=== PATIENT | female | born 1960 | race Caucasian/White ===

== ENCOUNTER 2017-01-07 12:31 | Emergency (ER) | payer SELFPAY ==
[2017-01-07 12:38] VITALS: BP 97/68
--- NOTE | 2017-01-07 12:41 | EDM.PDOC ---
ED HPI GENERAL MEDICAL PROBLEM - General Chief Complaint: Back Pain or Injury Stated Complaint: Back pain Time Seen by Provider: 01/07/17 12:31 Source of Information: Reports: Patient, Old records ([facility] chart/EMR) History Limitations: Reports: No Limitations - History of Present Illness INITIAL COMMENTS - FREE TEXT/NARRATIVE: Patient was brought to the emergency room via private automobile by her daughter for evaluation 04/08 sharp left lower pleuritic type symptoms with possible concomitant left upper lumbar pain with symptoms starting after she woke up this morning at 06:30 a.m. She did have a minor fall 3 days ago, however fell on her right side at that time with no known significant injury. The patient has had 5 day history of a greenish productive cough with 3 Tylenol tablets taken at about 07:30 hours for her pleuritic type symptoms. She has not measured her temperature with no known previous fever or known exposure to infection. Patient did not get her influenza booster this season. Patient has had a recent cardiac workup at [facility] in [place] as below. The patient denies any other chest pain/pressure, heart flutter, dizziness, orthostasis, orthopnea, diaphoresis, paresthesias, recent decreased exercise tolerance, or any other anginal-type symptoms. No recent history of abdominal pain, heartburn , nausea, diarrhea, melena, gross hematochezia, or any food intolerance, including fatty foods, etc.. She denies any recent gross hematuria, colic, or other UTI symptoms Onset: today, sudden Onset Date: 01/07/17 Onset Time: 06:30 Duration: Constant Location: Reports: chest, back. Denies: face, neck, pelvis, upper extremity, left, upper extremity, right, lower extremity, left, radiates to: Quality: Reports: Same as previous episode, Sharp Severity: moderate Improves with: Reports: Rest Worsens with: Reports: Breathing, Movement Associated Symptoms: Reports: cough, cough w sputum. 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 Back Pain Score (Numeric/FACES): 8 - Related Data Allergies Allergy/AdvReac Type Severity Reaction Status Date / Time amoxicillin Allergy Rash Verified 01/07/17 12:42 aspirin Allergy Bleeding Verified 01/07/17 12:42 codeine Allergy Anaphylactic Verified 01/07/17 12:42 Shock egg Allergy Rash Verified 01/07/17 12:42 Penicillins Allergy Swelling Verified 01/07/17 12:42 sertraline HCl [From Zoloft] Allergy Agitation Verified 01/07/17 12:42 Sulfa (Sulfonamide Allergy Rash Verified 01/07/17 12:42 Antibiotics) sulfamethoxazole Allergy Rash Verified 01/07/17 12:42 [From Bactrim] trimethoprim [From Bactrim] Allergy Rash Verified 01/07/17 12:42 Home Meds: Home Meds Ciprofloxacin HCl [Cipro] 500 mg PO BID #20 tablet 01/07/17 [Rx] Cyclobenzaprine [Flexeril] 10 mg PO TID PRN #60 tablet 01/07/17 [Rx] Pantoprazole Sodium 40 mg PO DAILY 01/07/17 [History] guaiFENesin/Dextromethorphan [Mucinex Dm ER 600-30 mg Tablet] 1 each PO BID #20 tab.er.12h 01/07/17 [Rx] Past Medical History HEENT History: Reports: Allergic rhinitis, Impaired vision. Denies: Cataract, Glaucoma, Hard of hearing, Macular degeneration, Retinal detachment Other HEENT History: glasses Cardiovascular History: Reports: Aneurysm (AAA as below), Arrhythmia, Blood clots/VTE/DVT, High cholesterol, Other (see below). Denies: Afib, CAD, Heart Failure, Heart murmur, Hypertension, ND, Pacemaker, PVD, Syncope Other Cardiovascular History: previous postoperative bilateral PEs after her hysterectomy at age 35 as below with no apparent subsequent anticoagulation therapy at discharge, Bradycardia, hypotension Respiratory History: Reports: COPD, Intubation, previous, PE, Pneumothorax, Other (see below). Denies: Asthma, Intubation, difficult, Pulmonary fibrosis Other Respiratory History: Right Sided pneumothorax secondary to AAA repair in 1984, postoperative PE as above Gastrointestinal History: Reports: Cholelithiasis, Chronic constipation, Gastritis, GERD, GI bleed, PUD, Other (see below). Denies: Bowel obstruction, Celiac disease, Colon polyp, Diverticulosis, Fecal incontinence, Helicobacter pylori, Hiatal hernia, Inflammatory bowel disease, Irritable bowel syndrome, Jaundice, Pancreatitis Other Gastrointestinal History: Benign hepatic cysts versus hemangiomas Genitourinary History: Reports: UTI, recurrent, Other (see below). Denies: Acute renal failure, Chronic renal insuffiency, Dialysis, Renal calculus, Retention, urinary, STD, Urinary incontinence Other Genitourinary History: Recurrent UTIs since childhood with surgeries as below ORTHOTIC/PROSTHETIC CLINICIAN History: Reports: Dysfunctional uterine bleeding, Fibroids, . Denies: Endometriosis, Spontaneous : 3 Para: 3 (C-sections x3 with full-term pregnancies otherwise no complications during the deliveries or pregnancies) LMP (Approximate): Menopausal (Surgical menopause as below) Musculoskeletal History: Reports: Arthritis, Back pain, chronic, Osteoarthritis. Denies: Amputation, Fracture, Gout, Osteoporosis, RA, SLE Neurological History: Reports: Concussion, Head trauma, Other (see below). Denies: Cerebral aneurysms, CVA, Headaches, chronic, Migraines, MS, Parkinson's , Seizure, TIA Other Neuro History: Nonspecific memory loss in early 2016, head concussion in 2013 Psychiatric History: Reports: Anxiety, Depression. Denies: Abuse, victim of, ADD, ADHD, Addiction, Psych Hospitalization(s), PTSD, Suicide attempt, Suicidal ideation Endocrine/Metabolic History: Reports: Other (see below). Denies: Diabetes, type I, Diabetes, type II, Hypothyroidism, IDDM, Osteoporosis Other Endocrine/Metabolic History: Severe recurrent Hypoglycemia Hematologic History: Reports: Anemia, B12 deficiency, Blood transfusion(s), Iron deficiency, Other (see below). Denies: Transfusion reaction Other Hematologic History: Note history of gastric bypass, blood transfusions with surgeries as above including AAA repair Immunologic History: Reports: None. Denies: AIDS, HIV, SLE Oncologic (Cancer) History: Denies: Basal cell carcinoma, Cervix, Hodgkin's Lymphoma, Leukemia, Lymphoma, Malignant melanoma, Non-Hodgkin's Lymphoma, Squamous cell carcinoma, Uterine Dermatologic History: Denies: Eczema, Psoriasis - Infectious Disease History Infectious Disease History: Reports: Chicken pox, Measles, Pertussis (whooping cough), Rubella, Other (see below) (Cat Scratch fever as a child). Denies: C- difficile, Helicobacter pylori, Meningitis, Mononucleosis, MRSA, Mumps, Rheumatic Fever, Scarlet fever, Shingles, TB, VRE - Past Surgical History Head Surgeries/Procedures: Reports: None HEENT Surgical History: Reports: Adenoidectomy, Oral surgery, Tonsillectomy, Other (see below). Denies: Cataract surgery, Eye surgery, Laser surgery, LASIK , Myringotomy w tube(s), Naso-sinus surgery Other HEENT Surgeries/Procedures: Multiple teeth extractions with complete upper dentures and partial lowers, tonsillectomy and adenoidectomy at about age 5 Cardiovascular Surgical History: Reports: AAA repair, Aneurysm, Vascular surgery , Other (see below) Other Cardiovascular Surgeries/Procedures: Abdominal aortic aneurysm repair at age 25 on 08/30/84, with subsequent other vascular repair of abdominal area concomitant with gastric bypass reversal as below Respiratory Surgical History: Reports: None. Denies: Lung Biopsies, Thoracentesis GI Surgical History: Reports: Appendectomy, Bariatric procedure, Cholecystectomy , Colonoscopy, EGD, Other (see below) Other GI Surgeries/Procedures: Gastric bypass surgery in 1980 with subsequent reversal in 1983 with concomitant repair of abdominal artery, open cholecystectomy with concomitant appendectomy in May of 1988, last EGD on 12/03/11 with incomplete last colonoscopy on the same day secondary to diffuse stool , vagotomy with gastric pyloroplasty Female Surgical History: Reports: section, Hysterectomy, Salpingo- oophorectomy, Tubal ligation, Other (see below). 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 Denies: Thyroid biopsy Other Endocrine Surgeries/Procedures: Glucometer implant in 2010 with subsequent removal Neurological Surgical History: Denies: C-Spine, Discectomy, Laminectomy, Lumbar spine, Spinal fusion, Vertebroplasty Musculoskeletal Surgical History: Denies: Carpal tunnel, Ganglion cyst, Hip replacement, Joint replacement, ORIF, Shoulder surgery Oncologic Surgical History: Reports: None. Denies: Biopsy of breast Dermatological Surgical History: Reports: None - Past Imaging History Past Imaging History: Reports: Cardiac echo (01/01/17 as below), CAT scan ( Abdomen and pelvis with oral and IV contrast on 02/19/15), MRI (Head in September 2016), Stress testing (Cardiolite stress test on 11/26/16 which was positive with subsequent PET scan of the chest and echocardiogram as above in [facility] on 01/01/17) Social & Family History - Family History Cardiac: Reports: CAD, Heart failure, ND, Other (see below) Other Cardiac Family History: Brother with initial ND at age 32 fatal CVA as below, mother with fatal ND and CHF in her 70s, paternal grandfather with fatal ND at age 47, brother with ND and unknown type of cardiac procedure in his 50s Neurological: Reports: CVA, Other (see below) Other Neurological Family History: Brother with multiple CVAs, previous heart disease as above, and fatal CVA at age 52, paternal grandmother and mother with CVA in her 70s Endocrine/Metabolic: Reports: Diabetes, type II, IDDM, Other (see below) Other Endocrine/Metabolic Family History: Mother with AODM, brother with IDDM with fatal CVA as above, another brother with IDDM Oncologic: Reports: Colon, Lung, Metastatic, Other (see below) Other Oncologic Family History: Father with fatal colon cancer with probable metastases to the brain at age 74 with additional apparent pulmonary lesions/ lung cancer and history of tobacco use, mother with fatal lung cancer at age 70 with history of tobacco use - Tobacco Use Smoking Status *Q: Never Smoker Smoking Cessation Information Provided To Patient: No Second Hand Smoke Exposure: No Second Hand Smoke Education Provided: No - Caffeine Use Caffeine Use: Reports: Coffee (2 cups per day), Tea (2 Cups per day). Denies: Energy drinks, Soda - Alcohol Use Alcohol Use History: No Days Per Week of Alcohol Use: 0 (No previous DWIs, problems with alcohol abuse, etc.) Number of Drinks Per Day: 1 (Usually wine for holidays) Total Drinks Per Week: 0 Alcohol Use Frequency: Socially - Recreational Drug Use Recreational Drug Use: No Drug Use in Last 12 Months: No Recreational Drug Type: Reports: Marijuana/Hashish (Experimentation for 8 months as a teenager). 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 Denies: Fever, Chills, Malaise, Fatigue, Night Sweats, Diaphoresis, Decreased Appetite, Weight Loss, Weight Gain HEENT: Reports: Glasses, Rhinitis, Sinus Problem. Denies: Contact Lenses, Dental Pain, Ear Discharge, Ear Pain, Eye Discharge, Hearing Loss, Throat Pain, Throat Swelling, Vertigo, Vision Change Respiratory: Reports: Pleuritic Chest Pain, Cough, Sputum. Denies: Shortness of Breath, Wheezing, Hemoptysis Cardiovascular: Denies: Chest Pain, Blood Pressure Problem, Claudication, Dyspnea on Exertion, Edema, Lightheadedness, Orthopnea, Palpitations, PND, Syncope Endocrine: Reports: No Symptoms. Denies: Fatigue, Low Glucose GI/Abdominal: Reports: No Symptoms. Denies: Abdominal Pain, Anorexia, Black Stool, Bloody Stool, Constipation, Diarrhea, Decreased Appetite, Difficulty Swallowing, Distension, Flatus, Hematemesis, Hematochezia, Melena, Nausea, Stool Incontinence, Vomiting : Reports: No Symptoms. Denies: Discharge, Dysuria, Flank Pain, Frequency, Hematuria, Incontinence, Pain, Urgency, Urinary Retention Musculoskeletal: Reports: Back Pain. Denies: Neck Pain, Shoulder Pain, Arm Pain , Hand Pain, Leg Pain Skin: Reports: No Symptoms. Denies: Jaundice, Pallor, Diaphoresis, Bruising, Pruritis, Wound Neurological: Reports: Difficulty Walking (Mild secondary to back pain and pleurisy). Denies: Confusion, Dizziness, Headache, Numbness, Paresthesia, Seizure, Syncope, Tingling, Weakness, Change in Speech, Gait Disturbance Psychiatric: Reports: No Symptoms. Denies: Agitation, Anxiety, Confusion, Depression, Hallucinations, Suicidal Ideation Hematologic/Lymphatic: Reports: No Symptoms Immunologic: Reports: No Symptoms ED EXAM, GENERAL - Physical Exam Exam: See Below Exam Limited By: No Limitations General Appearance: Alert, WD/WN, No Apparent Distress, Anxious (Moderate) Eye Exam: Bilateral Eye: EOMI, Normal Inspection (No nystagmus), PERRL Ears: Normal External Exam, Normal Canal, Hearing Grossly Normal, Normal TMs Nose: Normal Mucosa, Clear Rhinorrhea (Mild). No: No Blood Throat/Mouth: Normal Inspection, Normal Lips, Normal Gums, Normal Oropharynx, Normal Voice, No Airway Compromise. No: Normal Teeth (Complete upper dentures with partial lowers), Dysphagia, Perioral Cyanosis Head: Atraumatic, Normocephalic. No: Facial Swelling, Facial Tenderness, Sinus Tenderness Neck: Normal Inspection, Supple, Non-Tender, Full Range of Motion. No: Carotid Bruit, Lymphadenopathy (L), Lymphadenopathy (R), Thyromegaly Respiratory/Chest: Lungs Clear, Normal Breath Sounds, No Accessory Muscle Use, Chest Non-Tender (Nonspecific left lateral and posterior lower chest wall pain with no rubs, ecchymosis, deformity, etc.). No: Stridor, Pleural Rub, Accessory Muscle Use Cardiovascular: Normal Peripheral Pulses, Regular Rate, Rhythm, No Edema, No Gallop, No JVD, No Murmur, No Rub. No: Gallop/S3, Gallop/S4, Friction Rub Peripheral Pulses: 4+: Radial (L), Radial (R) GI/Abdominal: Normal Bowel Sounds, Soft, Non-Tender, No Organomegaly, No Distention, No Abnormal Bruit, No Mass. No: Pelvis Stable, Guarding (Female) Exam: Deferred Rectal (Female) Exam: Deferred Back Exam: Decreased Range of Motion (Secondary to upper lumbar/lower thoracic left-sided spasms and pain), Muscle Spasm (Lower left-sided thoracic), Paraspinal Tenderness (Mild to moderate localized tenderness in left back region as above) Extremities: Normal Inspection, Normal Range of Motion, Non-Tender, No Pedal Edema, Normal Capillary Refill. No: Pedal Edema, Brain's Sign Neurological: Alert, Oriented, CN II-XII Intact, Normal Cognition, Normal Gait, Normal Reflexes, No Motor/Sensory Deficits Psychiatric: Anxious (Moderate), Depressed Mood (Mild to moderate with adequate eye contact) Skin Exam: Warm, Dry, Intact, Normal Color, No Rash. No: Diaphoretic, Ecchymosis, Lymphangitis, Pallor, Wound/Incision Lymphatic: No Adenopathy Course - Vital Signs Last Recorded V/S: Last Vital Signs Temp 37.5 C 01/07/17 12:37 Pulse 75 01/07/17 12:37 Resp 18 01/07/17 12:37 BP 97/68 01/07/17 12:37 Pulse Ox 100 01/07/17 12:37 Vital Signs - 24 hr 01/07/17 12:37 Temperature [ 37.5 C Temporal] Pulse, 75 Peripheral [ Right Pulse Oximetry] Respiratory 18 Rate Blood Pressure 97/68 [Right Upper Arm] O2 Sat by Pulse 100 Oximetry - Orders/Labs/Meds Orders: Active Orders 24 hr Category Date Time Status Chest 2V [CR] Urgent Exams 01/07/17 12:42 Ordered Lumbar Spine 2 or 3V [CR] Stat Exams 01/07/17 12:42 Ordered CULTURE BLOOD [BC] Stat Lab 01/07/17 12:42 Ordered CULTURE BLOOD [BC] Stat Lab 01/07/17 12:50 Received CULTURE URINE [RM] Routine Lab 01/07/17 13:10 Received Blood Culture x2 Reflex Set [OM.PC] Urgent Oth 01/07/17 12:42 Ordered Obtain Past Medical Record [OM.PC] Routine Oth 01/07/17 12:42 Active Labs: Laboratory Tests 01/07/17 01/07/17 01/07/17 Range/Units 12:50 12:50 13:10 WBC 9.4 (4.0-10.2) K/uL RBC 4.10 (3.77-5.09) M/uL Hgb 12.8 (11.7-15.5) g/dL Hct 40.4 (34.0-46.0) % MCV 98.5 H (84.0-98.0) fL MCH 31.2 (28.2-33.3) pg MCHC 31.7 (31.7-36.0) g/dL RDW 12.5 (11.2-14.1) % Plt Count 259 (150-350) K/uL Neut % (Auto) 78.5 (45.0-80.0) % Lymph % (Auto) 14.5 (10.0-50.0) % Mellette % (Auto) 3.9 (2.0-14.0) % Eos % (Auto) 2.6 (0.0-5.0) % Baso % (Auto) 0.5 (0.0-2.0) % Neut # (Auto) 7.35 H (1.40-7.00) K/uL Lymph # (Auto) 1.36 (0.50-3.50) K/uL Mellette # (Auto) 0.37 (0.00-1.00) K/uL Eos # (Auto) 0.24 (0.00-0.50) K/uL Baso # (Auto) 0.05 (0.00-0.20) K/uL Sodium 140 (136-145) mmol/L Potassium 4.2 (3.5-5.1) mmol/L Chloride 105 (98-107) mmol/L Carbon Dioxide 30.6 (21.0-32.0) mmol/L BUN 14 (7-18) mg/dL Creatinine 0.89 (0.51-1.17) mg/dL Est Cr Clr Drug Dosing 72.05 mL/min Estimated GFR (MDRD) > 60 mL/min Glucose 111 H (74-106) mg/dL Calcium 9.4 (8.5-10.1) mg/dL Total Bilirubin 0.5 (0.2-1.0) mg/dL AST 16 (15-37) U/L ALT 19 (12-78) U/L Alkaline Phosphatase 115 (46-116) IU/L Total Protein 7.0 (6.4-8.2) g/dL Albumin 4.0 (3.4-5.0) g/dL Specimen Type Urincc Urine Color Yellow Urine Appearance Cloudy Urine pH 6.0 (5.0-9.0) Ur Specific Lindley 1.015 (1.005-1.030) Urine Protein Negative (NEGATIVE) mg/dL Urine Glucose (UA) Negative (NEGATIVE) mg/dL Urine Ketones Negative (NEGATIVE) mg/dL Urine Occult Blood Negative (NEGATIVE) Urine Nitrite Positive H (NEGATIVE) Urine Bilirubin Negative (NEGATIVE) Urine Urobilinogen 0.2 (0.2-1.0) E.U./dL Ur Leukocyte Esterase Negative (NEGATIVE) Urine RBC Not seen /HPF Urine WBC 0-5 /HPF Ur Epithelial Cells Rare /LPF Urine Bacteria Many H (NONE TO FEW) /HPF Meds: Medications Discontinued Medications Generic Name Dose Route Start Last Admin Trade Name Freq PRN Reason Stop Dose Admin Ceftriaxone Sodium 1 gm 01/07/17 13:42 01/07/17 13:51 Rocephin IM 01/07/17 13:43 1 gm ONETIME ONE Administration Ketorolac Tromethamine 60 mg 01/07/17 13:43 01/07/17 13:51 Toradol IM 01/07/17 13:44 60 mg ONETIME ONE Administration Lidocaine HCl 5 ml 01/07/17 13:42 01/07/17 13:50 Xylocaine-Mpf 1% INJECT 01/07/17 13:43 Not Given ONETIME ONE - Radiology Interpretation Free Text/Narrative:: Chest x-ray, PA and lateral, shows evidence of moderate osteoarthritic and osteoporotic changes in the thoracic spine including and probable old multiple minor vertebral body compression fractures with no evidence of acute fracture. Gastric dilatation and fluid levels significantly improved in comparison to use as below. No evidence of free air. Moderate COPD changes noted X-rays of the lumbar spine, 3 views, shows evidence of moderate osteoarthritic and osteoporotic changes as above including mild scoliosis. Multiple postsurgical changes noted including moderate gaseous distention in stool with occasional fluid levels, however no direct evidence of significant clinical obstruction based on chest x-ray as above Departure - Departure Time of Disposition: 14:35 Disposition: Home, Self-Care 01 Condition: good Clinical Impression: Bronchitis, Pleurisy, Peptic reflux disease, Mixed anxiety and depressive disorder UTI (urinary tract infection) Qualifiers: Urinary tract infection type: site unspecified Hematuria presence: without hematuria Qualified Code(s): N39.0 - Urinary tract infection, site not specified Osteoarthritis Qualifiers: Osteoarthritis location: multiple joints Osteoarthritis type: primary Qualified Code(s): M15.0 - Primary generalized (osteo)arthritis COPD (chronic obstructive pulmonary disease) Qualifiers: COPD type: COPD with acute lower respiratory infection Qualified Code(s): J44.0 - Chronic obstructive pulmonary disease with acute lower respiratory infection - Discharge Information Prescriptions: Ciprofloxacin HCl [Cipro] 500 mg PO BID #20 tablet Cyclobenzaprine [Flexeril] 10 mg PO TID PRN #60 tablet PRN Reason: Spasms guaiFENesin/Dextromethorphan [Mucinex Dm ER 600-30 mg Tablet] 1 each PO BID #20 tab.er.12h Instructions: Back Pain, Adult, [id number], Muscle Strain, [id number], Acute Bronchitis, [id number], Pleurisy, [id number], Urinary Tract Infection , Adult, [id number] Referrals: PCP,Unknown [Primary Care Provider] - Forms: ED Department Discharge Additional Instructions: 1. Followup with your regular provider in 10-14 days as directed. Repeat chest x-ray, blood work, etc. depending on her clinical course 2. Urine tests should be repeated at follow up visit with possible repeat urine culture,etc. at that time. Today's urine culture is pending with results in about 2-3 days. We will call you, if we need to change your therapy. 3. BenGay or equivalent, heating pad, and/or ice packs as directed. 4. Tylenol 650 mg by mouth every 4 hours and/or OTC ibuprofen 2-3 tabs by mouth every 6 hours with food as directed./needed. 5. Sedation, dry mouth, etc. precautions with Flexeril - Problem List & Annotations (1) Bronchitis SNOMED Code(s): 72665070 Code(s): J40 - BRONCHITIS, NOT SPECIFIED ACUTE OR CHRONIC Status: Acute Priority: High Current Visit: Yes Onset Date: ~01/02/17 Annotation/ Comment:: IM Rocephin given in the emergency room. Initiate Cipro, which should also be beneficial for her current UTI. Close followup with regular providers as per discharge instructions (2) Pleurisy SNOMED Code(s): 900498109 Code(s): R09.1 - PLEURISY Status: Acute Priority: High Current Visit: Yes Onset Date: 01/07/17 Annotation/Comment:: Pleuritic component to patient 's bronchitic-type symptoms as above (3) UTI (urinary tract infection) SNOMED Code(s): 43124459 Code(s): N39.0 - URINARY TRACT INFECTION, SITE NOT SPECIFIED Status: Acute Priority: High Current Visit: Yes Onset Date: 01/07/17 Annotation/ Comment:: IM Rocephin and Cipro therapy as above with continuation of oral Cipro as an outpatient. Close followup by regular provider, including followup urine tests as per discharge instructions. 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 Symptomatic relief as per discharge instructions. Additional Flexeril with sedation, etc. precautions discussed Qualifiers: Back pain location: thoracic back pain Chronicity: acute Back pain laterality: left Qualified Code(s): M54.6 - Pain in thoracic spine (5) COPD (chronic obstructive pulmonary disease) SNOMED Code(s): 64455681 Code(s): J44.9 - CHRONIC OBSTRUCTIVE PULMONARY DISEASE, UNSPECIFIED Status : Chronic Priority: Medium Current Visit: Yes Annotation/Comment:: COPD by chest x-ray with no history of tobacco use or currently required therapy. Consider PFTs depending on her clinical course Qualifiers: COPD type: COPD with acute lower respiratory infection Qualified Code(s): J44.0 - Chronic obstructive pulmonary disease with acute lower respiratory infection (6) Mixed anxiety and depressive disorder SNOMED Code(s): 153678959 Code(s): F41.8 - OTHER SPECIFIED ANXIETY DISORDERS Status: Chronic Priority: Medium Current Visit: Yes Annotation/Comment:: Moderate control based on today's exam. Continue to observe closely by her regular provider (7) Osteoarthritis SNOMED Code(s): 008045165 Code(s): M19.90 - UNSPECIFIED OSTEOARTHRITIS, UNSPECIFIED SITE Status: Chronic Priority: Medium Current Visit: Yes Annotation/Comment:: Otherwise stable by history Qualifiers: Osteoarthritis location: multiple joints Osteoarthritis type: primary Qualified Code(s): M15.0 - Primary generalized (osteo)arthritis (8) Peptic reflux disease SNOMED Code(s): 17751975 Code(s): K21.9 - GASTRO-ESOPHAGEAL REFLUX DISEASE WITHOUT ESOPHAGITIS Status: Chronic Priority: Medium Current Visit: Yes Annotation/Comment:: Stable by history and her current medical regimen - Problem List Review Problem List Initiated/Reviewed/Updated: Yes - My Orders Last 24 Hours: My Active Orders 01/07/17 12:42 Chest 2V [CR] Urgent Lumbar Spine 2 or 3V [CR] Stat CULTURE BLOOD [BC] Stat Blood Culture x2 Reflex Set [OM.PC] Urgent Obtain Past Medical Record [OM.PC] Routine 01/07/17 12:50 CULTURE BLOOD [BC] Stat 01/07/17 13:10 CULTURE URINE [RM] Routine - Assessment/Plan Last 24 Hours: My Active Orders 01/07/17 12:42 Chest 2V [CR] Urgent Lumbar Spine 2 or 3V [CR] Stat CULTURE BLOOD [BC] Stat Blood Culture x2 Reflex Set [OM.PC] Urgent Obtain Past Medical Record [OM.PC] Routine 01/07/17 12:50 CULTURE BLOOD [BC] Stat 01/07/17 13:10 CULTURE URINE [RM] Routine Assessment:: As above Plan: As above. Extensive precautions were given to the patient, who is in agreement with the treatment plan. See Patient Instructions for further treatment and plan.
[2017-01-07 13:15] LABS: CHLORIDE,CL 105 mmol/L (98-107); SODIUM,NA 140 mmol/L (136-145)
[2017-01-07] MEDS ORDERED: cefTRIAXone 1 GM Vial IM ONE (13:42)
[2017-01-07] MEDS ORDERED: Ketorolac 60 MG/2 ML SDV IM ONE (13:43)
== END 2017-01-07 14:35 | disposition home or self-care (01) ==
LOC: LL.ED 12:31
DX: J44.0 Chronic obstructive pulmonary disease with (acute) lower respiratory infection (principal); J40 Bronchitis, not specified as acute or chronic; N39.0 Urinary tract infection, site not specified; K21.9 Gastro-esophageal reflux disease without esophagitis; F41.8 Other specified anxiety disorders; M15.0 Primary generalized (osteo)arthritis; Z88.1 Allergy status to other antibiotic agents; Z88.6 Allergy status to analgesic agent; Z88.5 Allergy status to narcotic agent; Z91.012 Allergy to eggs; Z88.0 Allergy status to penicillin; Z88.2 Allergy status to sulfonamides; Z79.899 Other long term (current) drug therapy; Z98.890 Other specified postprocedural states; Z90.710 Acquired absence of both cervix and uterus
CPT/HCPCS: 36415; 71020; 72100; 80053; 81001; 85025; 87040; 87086; 87088; 87186; 96372; 99284; J0696; J1885; Q9967